=== PATIENT | female | born 1960 | race Caucasian/White ===

== ENCOUNTER 2020-09-14 17:36 | Inpatient (IN) | payer BC ==
[~2020-09-14 17:36] MED LIST: Iopamidol-370 76% 500 ML 1 ML ONE
[2020-09-14] MEDS ORDERED: Folic Acid 1 MG, Multivitamins, Adult 10 ML in Dextrose 5 %-0.45 % NaCl 1,000 ML IV SCH (22:15)
[2020-09-14] MEDS ORDERED: Thiamine HCl 200 MG/2 ML VIAL SLOW IVP SCH (22:15)
[2020-09-15] MEDS ORDERED: Lorazepam 2 MG/ML VIAL ONE (00:32)
[2020-09-15 04:00] VITALS: BMI 15.2
[2020-09-15] MEDS ORDERED: Acetaminophen 325 MG TAB PO PRN (04:15)
[2020-09-15] MEDS ORDERED: Ondansetron PF 4 MG/2 ML Vial IVP PRN (04:15)
[2020-09-15] MEDS ORDERED: Sodium Chloride 0.9% 1,000 ML IV SCH (04:15)
[2020-09-15] MEDS ORDERED: Ondansetron ODT 4 MG TAB SL PRN (04:15)
[2020-09-15] MEDS ORDERED: Lorazepam 2 MG/ML VIAL SLOW IVP SCH (06:45)
[2020-09-15] MEDS ORDERED: ALPRAZolam 0.25 MG TAB PO SCH (11:30)
[2020-09-15] MEDS: Sodium Chloride 0.9% 1,000 ML IV SCH (15:02)
[2020-09-15] MEDS ORDERED: Melatonin 3 MG TAB PO SCH (21:00)
[2020-09-15] MEDS ORDERED: Temazepam 15 MG CAP PO SCH (21:00)
[2020-09-15] MEDS ORDERED: Docusate 100 MG CAP PO SCH (21:15)
[2020-09-15] MEDS: Acetaminophen 325 MG TAB PO PRN (23:15)
[2020-09-15] MEDS: ALPRAZolam 0.25 MG TAB PO PRN (23:17)
[2020-09-16] MEDS ORDERED: Lorazepam 2 MG/ML VIAL SLOW IVP SCH (02:00)
[2020-09-16] MEDS: Acetaminophen 325 MG TAB PO PRN (05:00)
[2020-09-16] MEDS: Sodium Chloride 0.9% 1,000 ML IV SCH ×2 (05:00→16:24)
[2020-09-16] MEDS ORDERED: Electrolyte Replacement Protocol 1 EACH FS PRN (07:19)
[2020-09-16] MEDS: ALPRAZolam 0.25 MG TAB PO PRN ×3 (07:23→16:19)
[2020-09-16] MEDS: Potassium Chloride 20 MEQ TAB PO SCH ×2 (07:58→11:06)
[2020-09-16] MEDS ORDERED: busPIRone HCl 5 MG TAB PO SCH (09:00)
[2020-09-16] MEDS ORDERED: Citalopram 20 MG TAB PO SCH (09:00)
[2020-09-16] MEDS ORDERED: Bisacodyl 10 MG SUPP PR PRN (11:24)
[2020-09-16] MEDS ORDERED: Polyethylene Glycol 3350 17 GM Packet PO PRN (11:24)
[2020-09-16] MEDS ORDERED: Lorazepam 1 MG TAB PO PRN (11:25)
[2020-09-16] MEDS ORDERED: Potassium Chloride 20 MEQ TAB PO SCH (11:30)
[2020-09-16] MEDS ORDERED: Iopamidol-370 76% 500 ML 1 ML ONE (14:45)
[2020-09-16 18:32] VITALS: BP 140/77; TEMP 97.8
[2020-09-17] MEDS ORDERED: Haloperidol 1 MG TAB PO SCH (09:00)
== END 2020-09-16 18:28 | disposition home or self-care (01) | DRG 190 ==
LOC: ERS 17:36 → T4-A 09-15 01:10
PROVIDERS: ADMIT Student in an Organized Health Care Education/Training Program; ATTEND Internal Medicine
DX: J43.9 Emphysema, unspecified (principal); E43 Unspecified severe protein-calorie malnutrition; E87.1 Hypo-osmolality and hyponatremia; E87.2 Acidosis; Z68.1 Body mass index [BMI] 19.9 or less, adult; R62.7 Adult failure to thrive; F41.9 Anxiety disorder, unspecified; E86.0 Dehydration; K59.09 Other constipation; F17.200 Nicotine dependence, unspecified, uncomplicated; Z20.822 Contact with and (suspected) exposure to COVID-19; F31.9 Bipolar disorder, unspecified; Z88.8 Allergy status to other drugs, medicaments and biological substances; Z85.42 Personal history of malignant neoplasm of other parts of uterus; Z90.89 Acquired absence of other organs
CPT/HCPCS: 36415; 51701; 70450; 71275; 74177; 80048; 80053; 81003; 81015; 82550; 82553; 83605; 83690; 83735; 84484; 85025; 85379; 87040; 87086; 87635; 93005; 94640; 96365; 96366; 96375; J2060; J3411; J7042; J7620; Q9967; U0003; U0005